=== PATIENT | female | born 1955 | race Caucasian/White ===

== ENCOUNTER 2024-02-14 08:11 | Emergency (ER) | payer OTHER, SELFPAY ==
[2024-02-14] VITALS (9 sets, daily range): BP systolic 113–150; BP diastolic 59–96
[2024-02-14 09:04] LABS: % Basophils 0.4 % (0-2); % Eosinophils 1.5 % (0-6); % Immature Granulocytes 0.2 % (0-0.5); % Lymphocytes 40.5 % (20.5-51.1); % Monocytes 11.9 % (1.7-9.3); % Neutrophils 45.5 % (42.2-75.2); Absolute Eosinophils 0.1 10^3/uL (0-0.7); Absolute Lymphocytes 2.1 10^3/uL (1.2-3.4); Absolute Monocytes 0.6 10^3/uL (0.1-0.6); Absolute Neutrophils 2.4 10^3/uL (1.4-6.5); Hematocrit 39.2 % (37.0-47.0); Hemoglobin 13.6 g/dL (12.0-16.0); Mean Corp Hgb Conc. 34.7 g/dL (33.0-37.0); Mean Corpuscular Hgb 31.3 pg (27.0-31.0); Mean Corpuscular Volume 90.1 fL (81.0-99.0); Mean Platelet Volume 9.7 fL (7.4-10.4); Nucleated Red Blood Cells % 0 %; Platelet Count 225 10^3/uL (130-400); Red Blood Cell Count 4.35 10^6/uL (4.20-5.40); Red Cell Dist. Width 12.4 % (11.5-14.5); White Blood Cell Count 5.2 10^3/uL (4.8-10.8)
[2024-02-14 09:23] LABS: ALT (SGPT) 19 U/L (0-35); AST (SGOT) 24 U/L (14-36); Albumin 3.9 g/dl (3.5-5.0); Alkaline Phosphatase 67 U/L (38-126); Blood Urea Nitrogen 9 mg/dl (7-17); Calcium 10.2 mg/dl (8.4-10.2); Carbon Dioxide 26 mmol/L (22-30); Chloride 105 mmol/L (98-107); Glucose 103 mg/dl (70-99); Potassium 4.3 mmol/L (3.5-5.1); Sodium 140 mmol/L (135-145); Total Bilirubin 0.4 mg/dl (0.2-1.3); Total Protein 6.1 g/dl (6.3-8.2); eGFR > 60.00
--- NOTE | 2024-02-14 09:31 | ED.GENMED ---
History of Present Illness
General
Chief Complaint: Dizziness
Source: patient
Exam Limitations: none
Time Seen by Provider: 02/14/24 09:03
History of Present Illness
History of Present Illness:
68-year-old female sudden onset of spinning like vertigo that will last a minute or so. 2 episodes this morning. 2 episodes yesterday. No positional component no severe headache some minimal nausea. No other neurologic symptoms. History of
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 Patient does take an aspirin a day. No symptoms at this time
Past History
Past History
ED Past Medical History: CVA, GERD and Other (diverticulosis, DJD)
ED Past Surgical History: Appendectomy, Cholecystectomy and Gynecological (tubal ligation)
Social History
Tobacco: Smoker
Drug: None
Personal:
Living: with family
Employment: Retired
Family History
Family History: Other (reviewed and noncontributory)
Review of Systems
Review of Systems
All Other Systems: Not applicable
Constitutional: Denies fever or chills
Cardiac: Reports no symptoms
ABD/GI: Reports no symptoms
Phy Exam
Physical Exam
Physical Exam:
GENERAL: Alert and oriented in no apparent distress
EYE: Orbits normal.
NECK: Supple, no carotid bruit.
ENT: Pharynx without erythema
CARDIAC: Regular rate and rhythm without any obvious murmurs.
LUNGS: Clear breath sounds,normal
ABDOMEN: Soft, without focal tenderness or distention
NEUROLOGICAL: Alert and oriented , cranial nerves II through XII intact. No unusual nystagmus. Nogkrz-mr-iklb normal. No drift. Straight leg raising normal. Jmkh-qo-oekn normal. Light touch intact.
SKIN: Warm and dry, no rash or lesion, no discoloration, skin intact.
MUSCULOSKELETAL: No edema,no deformity.Good color
PSYCH: Normal and appropriate interaction.
Course
Orders/Labs/Results
Orders:
Orders
02/14/24 08:48
Electrocardiogram (*1) Urgent
Reason for Study: Chest Pain
EKG- Treatment ONCE
02/14/24 08:58
Complete Blood Count/With Diff Urgent
Comprehensive Metabolic Panel Urgent
02/14/24 09:12
CT Head W/o Iv Contrast Urgent
Comment:
Reason For Exam: Recurrent vertigo
IV Insert/Care/Rem.- Treatment PRN
02/14/24 13:12
MR Brain W/o & With Contrast Routine
Comment:
Reason For Exam: vertigo
OK for patient to be off Cardiac Monitoring for MRI: No
Recent pill cam endoscopy?: No
02/14/24 14:19
Meclizine [Antivert] 25 mg PO NOW STA
02/14/24 15:04
Acetaminophen [Tylenol] 650 mg .ROUTE .STK-MED ONE
02/14/24 15:13
Acetaminophen [Tylenol] 650 mg PO NOW STA
02/14/24 18:00
Atorvastatin [Lipitor] 40 mg PO QPM
02/15/24 08:00
Aspirin Chewable [Low Strength Aspirin] 81 mg PO DAILY
Abnormal Lab Results
02/14/24
08:58
MCH 31.3 H pg
(27.0-31.0)
Monocytes % 11.9 H %
(1.7-9.3)
Glucose 103 H mg/dl
(70-99)
Total Protein 6.1 L g/dl
(6.3-8.2)
02/14/24 08:58
02/14/24 08:58
Vital Signs
Initial and Last Documented VS:
Initial Vital Signs
Temp Pulse Resp BP Pulse Ox
97.8 F 70 20 148/59 98
02/14/24 08:18 02/14/24 08:18 02/14/24 08:18 02/14/24 08:18 02/14/24 08:18
Last Documented Vital Signs
Temp Pulse Resp BP Pulse Ox
97.8 F 85 20 132/73 98
02/14/24 08:18 02/14/24 15:34 02/14/24 15:34 02/14/24 15:34 02/14/24 15:34
MDM/Problems Addressed
Differential Diagnosis Includes:
Patient describing recurrent episodes of nonpositional vertigo. Inner ear versus central. With patient's CVA and risk factors we will ask for neurology's opinion
*Radiology
Radiology exam reviewed: radiology read reviewed (No acute abnormalities on CT)
*EKG
Interpreted by ED Provider?: Yes
Interpretation: normal
Comparison EKG: no changes
Heart Rate: 63
Rate: normal
Rhythm: sinus
[place]: normal axis
Interval: normal interval
QRS Pattern: normal QRS
Ischemia: no ischemia
*Critical Care Note
Total Time (30-74mins, 75-104mins- exclusive of procedures): Not Applicable
Data Reviewed
Review of Other/Old Records Reveals: Labs, Records, Radiology Studies, Testing and Discharge Summary
Update Note
Update Note:
Patient seen by neurology. We are both in agreement this was likely a peripheral vertigo. It is positional in nature no other neurologic findings. However with her stroke history MRI will be obtained. If negative discharged to follow-up
ED Attending Note
-
Portions of this chart may have been created with voice recognition software.� Occasional wrong word or��sound alike� substitutions may have occurred due to the inherent limitations of voice recognition software.
Discharge Plan
Departure
Patient Disposition: Home (Routine Discharge)
Date of Disposition: 02/14/24
Time of Disposition: 14:59
Patient with high blood pressure during this ER visit?: Yes
Discharge Problem:
Dizziness
Instructions: Dizziness, BLOOD PRESSURE
Prescriptions:
New
meclizine 25 mg tablet
25 mg PO TID PRN (Reason: dizziness) Qty: 14 0RF
No Action
lansoprazole [Prevacid] 15 MG capsule,delayed release(DR/EC)
15 mg PO DAILY
acetaminophen 325 MG tablet
650 mg PO Q4HPRN PRN (Reason: mild to moderate pain) Qty: 0 0RF
polyethylene glycol 3350 17 GRAMS powder in packet
17 grams PO DAILYPRN PRN (Reason: constipation) Qty: 0 0RF
atorvastatin 40 MG tablet
40 mg PO QPM Qty: 30 0RF
clopidogrel 75 MG tablet
75 mg PO DAILY Qty: 21 0RF
nicotine 21 MG patch 24 hour
21 mg transdermal DAILY 0RF
aspirin 81 MG tablet,chewable
81 mg PO DAILY 0RF
Referrals:
Yanira Suazo MD [Family Provider] - Follow up in 2-3 days
Activity Restrictions/Additional Instructions:
Meclizine for symptomatic relief
Your prescription was sent to your pharmacy
Follow-up closely with your primary physician
MRI of the brain shows no acute abnormality, no sign of an acute stroke
Interventions
Interventions:
*Risk Screen - Suicide Last Done: 02/14/24 08:21
*General Assessment Last Done: 02/14/24 08:21
*Neglect/Abuse Screening Last Done: 02/14/24 08:21
*ED COVID-19 Vaccine History Last Done: 02/14/24 09:00
*Nursing Disposition Last Done: 02/14/24 15:34
ED- Neurological Assessment Last Done: 02/14/24 09:00
ED- Cardiac Assessment Last Done: 02/14/24 09:00
ED Swallowing Screen Last Done: 02/14/24 09:00
Discharge Date and Time
Discharge Date/Time: 02/14/24 15:36
Print Language: KOREAN
--- NOTE | 2024-02-14 11:22 | CON.NEURO ---
Consultation
Order
Date of Consultation: 02/14/24
Requesting Provider: Jevon Colón MD
Reason for Consult: Dizziness
CC: dizziness
HPI: This is a 68-year-old woman who presented to [facility] on February 14, 2024 with dizziness. According to the patient she developed intermittent sensation of the room spinning lasting for about a minute, which began yesterday
morning. Her first episode was provoked by turning in bed and is accompanied by nausea and imbalance, preventing her from getting up. She denies any associated ear pain, tinnitus, diplopia, dysarthria, slurred speech, or weakness . She has no
history of head trauma and has never experienced similar symptoms before.
She has a history of R MCA embolic stroke in 2019 that she has been taking ASA 81 mg for, though occasionally misses a dose. She denies any recent missed doses.
She also reports occasional tremors when holding a cup of coffee or writing, with a slight weakness on one side. There is no family history of similar shaking.
ER VS: 148/59, 70, afebrile
PDMP:none
Labs: gluc 103, normal WBC, Cr
PMH:R MCA cortical stroke(2019), R ICA occlusion, h/o recurrent colonic diverticulitis,
PSH: BL cataract surgery, left colon resection, appendectomy , cholecystectomy, tubal ligation
SH:former smoker; works as residential sales consultant at med office; no history of excessive alcohol
FH: Not contributory to current presentation.
All:NKDA
ROS:Constitutional: Negative. Negative for chills, fever and unexpected weight change.
HENT: Negative for ear pain, hearing loss, tinnitus and trouble swallowing.
Eyes: Negative. Negative for photophobia, pain and visual disturbance.
Respiratory: Negative for cough, choking and shortness of breath.
Cardiovascular: Negative for chest pain, palpitations and leg swelling.
Gastrointestinal: Negative for abdominal pain and vomiting.
Endocrine: Negative. Negative for cold intolerance.
Genitourinary: Negative for dysuria, flank pain and urgency.
Musculoskeletal: Positive for neck and back pain
Skin: Negative for rash.
Allergic/Immunologic: Negative. Negative for immunocompromised state.
Neurological: Positive for vertigo, imbalance
Psychiatric/Behavioral: Negative for behavioral problems, confusion and hallucinations.
General: Well developed. In no acute distress.
Cardio: Regular rate and rhythm without murmur. Extremities are without cyanosis or edema.
Neuro:
Mental Status: Alert, oriented to person, place, and date. Normal attention and recall. Good fund of knowledge. Follows complex requests across the midline. Comprehension, naming, and repetition intact. Immediate and delayed recall 3/3.
Cranial Nerves: . Pupils are equally round, surgical. EOMs full. Visual castellanos full to confrontation. No ptosis. No nystagmus. V1-V3 intact to light touch and pinprick bilaterally, symmetric. Face symmetric. Normal hearing AU. The palate
elevated well. SCMs and traps 5/5. Tongue midline. No dysarthria.
Motor: Normal bulk and tone. No pronator or arm drift. Strength 5/5 throughout. No clonus.
Reflexes: 3+ throughout the upper extremities and knees. Negative Berta's bilaterally plantar responses flexor bilaterally.
Sensory: Normal vibration at the ankles
Coordination: Mild action hand tremor. No dysmetria.
Gait: deferred
Assessment and Plan:
I. Probable BPPV
II. History of right MCA stroke�right ICA occlusion
III. DLP
-Fall precautions
-Meclizine 25 mg every 8 hours as needed
-PT
-Brain MRI without gadolinium given multiple stroke risk factors
-Continue aspirin 81 mg once a day
-DC Plavix if no acute infarcts are seen on brain MRI
-Lipitor 40 mg QHS
-Please check LDL, hemoglobin A1c
-EKG
-DVT prophylaxis
I personally reviewed all radiology and labs along with past medical records pertinent to current medical problems. Total time spent in patient care is 60 minutes.
Thank you for allowing us to participate in the care of this patient. We will continue to follow. Please do not hesitate to contact us with any questions or concerns.
Subjective/Objective
Subjective Data
Date of Service: February 14, 2024
Objective Data
Vital Signs
Temp Pulse Resp BP Pulse Ox
36.6 C 69 17 142/72 98
02/14/24 08:18 02/14/24 11:00 02/14/24 11:00 02/14/24 11:00 02/14/24 08:18
Lab Results
02/14/24 08:58
02/14/24 08:58
Sodium 140 mmol/L (135-145) 02/14/24 08:58
Potassium 4.3 mmol/L (3.5-5.1) 02/14/24 08:58
BUN 9 mg/dl (7-17) 02/14/24 08:58
Glucose 103 mg/dl (70-99) H 02/14/24 08:58
Calcium 10.2 mg/dl (8.4-10.2) 02/14/24 08:58
Patient Allergies
chocolate flavor Allergy (Verified 02/14/24 08:20)
Itching
Medications
-
Home Medications
�Medication �Instructions �Recorded
lansoprazole 15 mg capsule,delayed 15 mg PO DAILY 01/07/18
release (Prevacid)
acetaminophen 325 mg tablet 650 mg (2 x 325 mg) PO Q4HPRN PRN 01/19/18
mild to moderate pain #0 tabs
polyethylene glycol 3350 17 gram 17 grams PO DAILYPRN PRN 01/19/18
oral powder packet constipation #0 packets
aspirin 81 mg chewable tablet 81 mg PO DAILY 05/27/19
atorvastatin 40 mg tablet 40 mg PO QPM #30 tabs 05/27/19
clopidogrel 75 mg tablet 75 mg PO DAILY #21 tabs 05/27/19
nicotine 21 mg/24 hr daily 21 mg transdermal DAILY 05/27/19
transdermal patch
Vital Signs and Labs
-
Vital Signs and Labs:
Vital Signs
Temp Pulse Resp BP Pulse Ox
36.6 C 69 17 142/72 98
02/14/24 08:18 02/14/24 11:00 02/14/24 11:00 02/14/24 11:00 02/14/24 08:18
Lab Results
02/14/24 08:58
02/14/24 08:58
Sodium 140 mmol/L (135-145) 02/14/24 08:58
Potassium 4.3 mmol/L (3.5-5.1) 02/14/24 08:58
BUN 9 mg/dl (7-17) 02/14/24 08:58
Glucose 103 mg/dl (70-99) H 02/14/24 08:58
Calcium 10.2 mg/dl (8.4-10.2) 02/14/24 08:58
Home Medications
-
Home Medications
lansoprazole 15 mg capsule,delayed release (Prevacid) 15 mg PO DAILY 01/07/18
acetaminophen 325 mg tablet 650 mg (2 x 325 mg) PO Q4HPRN PRN mild to moderate pain #0 tabs 01/19/18
polyethylene glycol 3350 17 gram oral powder packet 17 grams PO DAILYPRN PRN constipation #0 packets 01/19/18
aspirin 81 mg chewable tablet 81 mg PO DAILY 05/27/19
atorvastatin 40 mg tablet 40 mg PO QPM #30 tabs 05/27/19
clopidogrel 75 mg tablet 75 mg PO DAILY #21 tabs 05/27/19
nicotine 21 mg/24 hr daily transdermal patch 21 mg transdermal DAILY 05/27/19
[2024-02-14] MEDS: ANTIVERT 25 MG PO (14:56)
[2024-02-14] MEDS: TYLENOL 650 MG PO (15:13)
== END 2024-02-14 15:36 | disposition home or self-care (01) ==
LOC: EMR 08:11
PROVIDERS: EMERGENCY PHYSICIAN Emergency Medicine; FAMILY PHYSICIAN Internal Medicine
DX: R42 Dizziness and giddiness (principal); K21.9 Gastro-esophageal reflux disease without esophagitis; Z86.73 Personal history of transient ischemic attack (TIA), and cerebral infarction without residual deficits; Z90.49 Acquired absence of other specified parts of digestive tract; Z79.82 Long term (current) use of aspirin
CPT/HCPCS: 99284; 70450; 70553; 80053; 85025; 93005; A9575

== ENCOUNTER → 2024-03-27 14:39 | Outpatient (REF) | payer OTHER, SELFPAY | LOC: WDC 14:39 | PROVIDERS: FAMILY PHYSICIAN Internal Medicine | DX: M81.0 Age-related osteoporosis without current pathological fracture (principal); Z12.31 Encounter for screening mammogram for malignant neoplasm of breast | CPT/HCPCS: 77063; 77067; 77080 ==